=== PATIENT | male | born 1940 | race Caucasian/White ===

== ENCOUNTER 2018-08-19 19:05 | Emergency (ER) | payer MEDICAID, MEDICARE ==
[~2018-08-19] VITALS: Ht 177.8 cm; Wt 71.2 kg
[~2018-08-19 19:05] MED LIST: ASPI81TA40 PO; CALC1TAB15 PO; EPINEPHrine 1:1,000 [1 MG/ML] AMP IM ONE; FERR-89 PO; OLAN5TAB2 PO; OMEP20 PO; PROZ10 PO; SIMV-260 PO; SODIUM BICARBONATE [ADULT] 8.4% 50 MEQ/50 ML SYRINGE IVP ONE; TAMS0.4C32 PO; VITAD400 PO
[2018-08-19 19:28] LABS: ABG A-A DIFF O2 541.4 mmHg (10-20.0); ABG BASE EXCESS 21.9 mmol/L (-2.0-3.0); ABG CARBOXYHEMOGLOBIN 0.1 % (0.0-1.5); ABG HCO3 43.4 mmol/L (22.0-26.0); ABG METHEMOGLOBIN 0.3 % (0.0-1.5); ABG OXYGEN CONTENT 17.9 mL/dL (15.0-23.0); ABG OXYGEN SATURATION 97.9 % (95.0-98.0); ABG OXYHEMOGLOBIN 97.5 % (94.0-100.0); ABG PCO2 53 mmHg (35-45); ABG PH 7.544 (7.35-7.450); ABG TOTAL HEMOGLOBIN 12.9 G/dL (12.0-18.0); SOURCE, BLOOD GAS ARTERIAL; TEMPERATURE, FAHRENHEIT, BG 98.6 FAHREN (96.0-98.6)
[2018-08-19 19:29] LABS: O2 DEVICE,BLOOD GAS BAG VALVE MASK (ROOM AIR); SITE, BLOOD GAS RT RADIAL
[2018-08-19 19:30] VITALS: BP 0/0
[2018-08-19 19:36] LABS: HEMATOCRIT 37.6 % (41-53); HEMOGLOBIN 12.2 g/dL (13.5-17.5); MEAN CORPUSCULAR HEMOGLOBIN 27.9 pg (26.0-34.0); MEAN CORPUSCULAR HGB CONC 32.5 G/dL (31.0-37.0); MEAN CORPUSCULAR VOLUME 86 fL (80-100); RED BLOOD CELL COUNT(AUTO) 4.38 MIL/uL (4.50-5.90); RED CELL DISTRIBUTION WIDTH 15.4 % (11.5-14.5)
[2018-08-19 19:54] LABS: PLATELET COUNT (AUTO) 12 K/uL (150-450)
[2018-08-19 20:01] LABS: ALANINE AMINOTRANSFERASE 1158 U/L (12-78); ALBUMIN 1.7 g/dL (3.4-5.0); ALKALINE PHOSPHATASE 111 U/L (46-116); ANION GAP 14 mmol/L (8-16); BILIRUBIN,TOTAL 0.5 mg/dL (0.1-1.0); CALCIUM, TOTAL 7.5 mg/dL (8.8-10.5); CHLORIDE 117 mmol/L (98-107); CREATININE 2.03 mg/dL (0.60-1.30); GLOMERULAR FILTR. RATE CALC 32 mL/min (>60); GLUCOSE,RANDOM 398 mg/dL (70-110); TOTAL PROTEIN, SERUM 4.1 g/dL (6.4-8.2); UREA NITROGEN, BLOOD 35 mg/dL (7-18)
[2018-08-19 20:05] LABS: CARBON DIOXIDE 44 mmol/L (22-29); POTASSIUM 7.2 mmol/L (3.5-5.1); SODIUM SERUM 175 mmol/L (136-145)
[2018-08-19 20:06] LABS: ASPARTATE AMINOTRANSFERASE 1561 U/L (15-37)
[2018-08-19] MEDS ORDERED: AMAN100C12 PO (20:08)
[2018-08-19] MEDS ORDERED: OLAN5TAB2 PO (20:08)
[2018-08-19] MEDS ORDERED: CLON-570 PO ×2 (20:08)
[2018-08-19] MEDS ORDERED: MEMA10TA11 PO (20:08)
[2018-08-19] MEDS ORDERED: TAMS-1 PO (20:08)
[2018-08-19] MEDS ORDERED: SIMV-260 PO (20:08)
[2018-08-19] MEDS ORDERED: OLAN7.5T2 PO (20:08)
[2018-08-19 20:15] LABS: BAND NEUTROPHILS % (MANUAL) 4 % (0-5); CORRECTED WHITE BLOOD COUNT 4.9 K/uL (4.5-11.0); LYMPHOCYTES % (MANUAL) 56 % (22-44); MONOCYTES % (MANUAL) 9 % (2-9); SEGMENTED NEUTROPHILS % 31 % (40-70)
== END 2018-08-19 23:00 | disposition expired ==
LOC: EMS 19:05
DX: I46.9 Cardiac arrest, cause unspecified (principal); D69.6 Thrombocytopenia, unspecified; K92.2 Gastrointestinal hemorrhage, unspecified; E87.0 Hyperosmolality and hypernatremia; E87.5 Hyperkalemia; K21.9 Gastro-esophageal reflux disease without esophagitis; E78.00 Pure hypercholesterolemia, unspecified; F32.9 Major depressive disorder, single episode, unspecified
CPT/HCPCS: 31500; 36415; 36600; 80053; 82805; 82962; 83605; 84484; 85025; 92950; 99291; J0171; J3490